=== PATIENT | female | born 1990 | race Caucasian/White ===

== ENCOUNTER → 2023-02-15 | Outpatient (CLI) | payer BC ==
--- NOTE | 2023-02-15 12:20 | MR ---
EXAMINATION TYPE: MR brain wo con DATE OF EXAM: 02/15/2023 12:01 PM COMPARISON: None HISTORY: Optic nerve swelling, dizziness, slight memory loss Multiplanar and multispin-echo imaging of the brain was performed . The ventricles, basal cisterns and sulci overlying the cerebral convexities are within normal limits. There is no evidence for midline shift or mass effect. Acute intracranial hemorrhage or extra-axial collection is not evident. The brain parenchyma reveals no abnormal increased signal. There is incidental right frontal venous angioma. No acute edema is identified. The paranasal sinuses and mastoid air cells are well-aerated. IMPRESSION: Incidental right frontal venous angioma. If symptoms of papilledema persist consider dedicated high-r esolution MRI of the orbits.
== END | disposition home or self-care (01) ==
LOC: RADMRIMAIN 10:23
PROVIDERS: ATTEND Ophthalmology
DX: H47.11 Papilledema associated with increased intracranial pressure (principal); Q28.3 Other malformations of cerebral vessels
CPT/HCPCS: 70551